=== PATIENT | female | born 1990 | race Caucasian/White ===

== ENCOUNTER 2024-03-09 11:00 | Emergency (ER) | payer MEDICAID ==
[~2024-03-09] VITALS: Ht 160 cm; Wt 53.4 kg
[2024-03-09 11:52] VITALS: BP 137/70; PULSE 88; RESP 16; TEMP 98.3; O2SAT 97
[2024-03-09] MEDS: LIDOCAINE VISCOUS 2% 15ML UD PO ONE (14:09)
[2024-03-09] MEDS: GLUCAGON EMERG KIT 1mg/1ml IM ONE (14:31)
== END 2024-03-09 15:00 | disposition home or self-care (01) ==
LOC: ER 11:00
DX: R09.A2 Foreign body sensation, throat (principal); Z79.899 Other long term (current) drug therapy
CPT/HCPCS: 72125; 82962; 96372; 99285; J1610

== ENCOUNTER 2024-08-01 08:55 | Emergency (ER) | payer OTHER ==
[~2024-08-01] VITALS: Ht 160 cm; Wt 50.9 kg
[2024-08-01 10:34] VITALS: BP 121/83; PULSE 83; RESP 16; TEMP 98.7; O2SAT 97
--- NOTE | 2024-08-01 10:56 | ED.PDOC ---
Eye-HPI HPI Comments A 33 YEAR OLD FEMALE PRESENTS TO THE ED WITH COMPLAINT OF SORE THROAT. PATIENT STATES SHE HAS BEEN EXPERIENCING A SORE THROAT AND NASAL CONGESTION FOR THE PAST 1 WEEK. PATIENT REPORTS HER PAIN IS WORSE WITH SWALLOWING. PATIENT DENIES FEVER, CHILLS, SHORTNESS OF BREATH, CHEST PAIN, ABDOMINAL PAIN, NAUSEA, VOMITING, HEADACHE, OR OTHER COMPLAINTS. NO OTHER SYMPTOMS OR MODIFYING FACTORS AT THIS TIME. PATIENT IS ALERT, ORIENTED X 4, AND HAS STEADY GAIT. Chief Complaint: Sore Throat Time Seen by MD: 09:20 Reviewed Notes: Nurses Notes, Medications, Allergies Allergies: Coded Allergies: NO KNOWN ALLERGIES (Unverified , 03/09/24) Information Source: Patient Mode of Arrival: Ambulatory Timing: Days Duration: Since onset, Days Prehospital treatment: None Quality: Pain, Red Lids: Normal Conjunctiva: Normal Cornea: Normal Pupils: Normal EOM: Normal Fundus: Normal Slit lamp exam: Normal Anterior chamber: Normal Mouth Location: Pharynx Mouth: Normal ENT Ear Exam: Normal, Normal, Normal Nose: Normal Sinuses: Normal Oropharynx: Tonsillar hypertrophy, Red, Exudate Onset: Spontaneous Throat Exposed to: None History of: None Last Tetanus: Unknown Modifying factors: Nothing Associated signs and symptoms: Nasal Symptoms, Sore Throat Past Medical History PAST MEDICAL HISTORY: Denies Surgical History: Denies all 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[employer] History Family History Family History: Reviewed,noncontributory to illness Social History Smoker: Non-Smoker Alcohol: Denies ETOH Use Drugs: Denies Drug Use Lives In: Home Constitutional: denies: chills, diaphoresis, fatigue, fever, malaise, sweats, weakness, others EENTM: reports: nose congestion, throat pain, throat swelling; denies: blurred vision, double vision, ear bleeding, ear discharge, ear drainage, ear pain, ear ringing, eye pain, eye redness, hearing loss, mouth pain, mouth swelling, nasal discharge, nose bleeding, nose pain, photophobia, tearing, voice changes, others Respiratory: denies: cough, hemoptysis, orthopnea, SOB at rest, shortness of breath, SOB with excertion, stridor, wheezing, others Cardiovascular: denies: chest pain, dizzy spells, diaphoresis, Dyspnea on exertion, edema, irregular heart beat, left arm pain, lightheadedness, palpitations, PND, syncope, others Gastrointestinal: denies: abdomen distended, abdominal pain, blood streaked bowels, constipated, diarrhea, dysphagia, difficulty swallowing, hematemesis, melena, nausea, poor appetite, poor fluid intake, rectal bleeding, rectal pain, vomiting, others Genitourinary: denies: abnormal vagina bleeding, burning, dyspareunia, dysuria, flank pain, frequency, hematuria, incontinence, pain, , vagina discharge, urgency, others Neurological: denies: dizziness, fainting, headache, left sided numbness, left sided weakness, numbness, paresthesia, pre-existing deficit, right sided numbne ss, right sided weakness, seizure, speech problems, tingling, tremors, weakness, others Musculoskeletal: denies: back pain, gout, joint pain, joint swelling, muscle pain, muscle stiffness, neck pain, others Integumetry: denies: bruises, change in color, change in hair/nails, dryness, laceration, lesions, lumps, rash, wounds, others Allergic/Immunocompromised: denies: Difficulty Healing, Frequent Infections, Hives, Itching, others Hematologic/Lymphatic: denies: anemia, blood clots, easy bleeding, easy bruising, swollen glands, others Endocrine: denies: excessive hunger, excessive sweating, excessive thirst, excessive urination, flushing, intolerance to cold, intolerance to heat, unexplained weight gain, unexplained weight loss, others Psychiatric: denies: anxiety, bipolar disorder, depression, hopeless, panic disorder, schizophrenia, sleepless, suicidal, others All Other Systems: Reviewed and Negative Physical Exam General Appearance: No Apparent Distress, Normal HEENT: PERRL/EOMI, Pharyngeal Erythema (TONSILLAR SWELLING WITH MILD EXUDATES. ), TMs Normal Neck: Full Range of Motion, Non-Tender, Normal, Normal Inspection Respiratory: Chest Non-Tender, Lungs Clear, No Accessory Muscle Use, No Respiratory Distress, Normal Breath Sounds Cardiovascular: No Edema, No JVD, No Murmur, No Gallop, Normal Peripheral Pulses, Regular Rate/Rhythm Breast Exam: Deferred Gastrointestinal: No Organomegaly, Non Tender, No Pulsatile Mass, Normal Bowel Sounds, Soft Genitalia: Deferred Pelvic: Deferred Rectal: Deferred Extremities: No calf tenderness, Normal capillary refill, Normal inspection, Normal range of motion, Non-tender, No pedal edema Musculoskeletal : Apperance: Normal Neurologic: Alert, building dismantler II-XII nml as Tested, No Motor Deficits, Normal Affect, Normal Mood, No Sensory Deficits Cerebellar Function: Normal Reflexes: Normal Skin: Dry, Normal Color, Warm Peripheral Pulses: 2+ carotid (R), 2+ carotid (L) Lymphatic: No Adenopathy Was a procedure done? Was a procedure done?: No EENT DIFF Eye: N/A Ear: Otitis Media, Pharyngitis, Sinusitis Nose: N/A Mouth: N/A Sore Throat: Pharyngitis, Streptococcal, Viral Pharyngitis, URI X-Ray, Labs, Meds, VS Vital Signs Date Time Temp Pulse Resp B/P (MAP) Pulse Ox O2 Delivery O2 Flow Rate FiO2 08/01/24 10:34 98.7 83 16 121/83 (96) 97 98.7 08/01/24 10:34 83 16 97 Room Air 08/01/24 09:17 98.7 83 16 121/83 (96) 97 X-Ray, Labs, Meds, VS Comment TREATMENT: ROCEPHIN 1 G IM Time of 1ST Reevaluation: 11:20 Reevaluation 1ST: Improved Patient Education/Counseling: Diagnosis, Treatment, Need For Follow Up Family Education/Counseling: Diagnosis, Treatment, Need For Follow Up Medical Screening: No EMC Exist At This Time Departure 1 Departure Time of Disposition: 11:20 Impression: Primary Impression: Exudative tonsillitis Disposition: 01 HOME / SELF CARE / HOMELESS Condition: Stable Additional Instructions: FOLLOW-UP WITH PCP IN 1 TO 2 DAYS. TAKE MEDICATIONS PRESCRIBED. RETURN TO ED FOR ANY NEW OR WORSENING SYMPTOMS. e-Prescriptions Ibuprofen Micronized (MOTRIN TABLET) 600 Mg Tb 600 MG PO TID PRN, #24 TAB *Black box warning-NSAIDS can increase risk of ND & hypertension, GI irritation, ulceration, bleed, perferation. Do not use post cardiac surgery. Use short duration/lowest effective dose. Prov: SKYLER PEREZ 08/01/24 Azithromycin (ZITHROMAX TABLET) 250 Mg Tb 250 MG PO DAILY, #6 TAB Prov: SKYLER PEREZ 08/01/24 Discharged With: Self Critical Care Note Critical Care Time?: No Stability Stability form required: No I personally scribed for SKYLER PEREZ ([email or web address]) on 08/01/24 at 10:56. Electronically submitted by Brady Cameron ([email or web address]). SKYLER PEREZ Aug 01, 2024 10:56
[2024-08-01] MEDS: cefTRIAXone SOD 1,000 MG VL IM ONE (11:07)
[2024-08-01] MEDS ORDERED: AZIT-185 PO (11:08)
[2024-08-01] MEDS ORDERED: IBU600T PO (11:08)
== END 2024-08-01 11:19 | disposition home or self-care (01) ==
LOC: ER 08:55
DX: J03.90 Acute tonsillitis, unspecified (principal)
CPT/HCPCS: 96372; 99283; J0696